=== PATIENT | male | born 1955 | race Caucasian/White ===

== ENCOUNTER → 2021-08-04 | Day surgery (SDC) | payer OTHER ==
--- NOTE | 2021-08-04 10:27 | RAD REPORT ---
EXAM DESCRIPTION: US - Guided FNA Non Breast - 08/04/2021 10:18 am CLINICAL HISTORY: E04.1 COMPARISON: URINARY BLADDER dated 04/12/2012 FINDINGS: Preoperative diagnosis: Indeterminate left thyroid nodule. Post operative diagnosis: Same. Conscious Sedation: None Fluoroscopy time: None Contrast used: None Estimated blood loss: Minimal Specimens:3 fine-needle aspirates were obtained with a 25 gauge needle The neck was prepped and draped in the usual sterile fashion. 1% lidocaine was infiltrated into the s ubcutaneous tissues for local anesthesia. Real time ultrasound scanning of the neck demonstrated left thyroid nodule. Under ultrasound guidance, fine needle aspirates were obtained. No complications. . IMPRESSION: Technically successful ultrasound-guided fine-needle aspiration of a solid-appearing lef t thyroid nodule.
== END ==
LOC: FNA 09:47
PROVIDERS: ATTEND Internal Medicine
PROC: 0GJK3ZZ Inspection of Thyroid Gland, Percutaneous Approach (ICD-10-PCS; principal; 2021-08-04)
DX: E04.1 Nontoxic single thyroid nodule (principal)
CPT/HCPCS: 88162